=== PATIENT | male | born 1975 | race Two or more races ===

== ENCOUNTER 2020-12-31 20:50 | Emergency (ER) | payer OTHER ==
[2020-12-31 20:52] VITALS: BP 106/63
--- NOTE | 2020-12-31 20:52 | NUR ---
BIBA FOLLOWING PEPPER SPRAY TO FACE BY RTC. PT C/O PAIN TO FACE AND EYES. PT SITTING UPRIGHT ON SAUNDRA NUNO VSChristiano. "I JUST WANT TO GO HOME". PT DENIES ANY NEEDS AT THIS TIME
--- NOTE | 2020-12-31 22:05 | NUR ---
PT RESTING COMFORTABLY WITH EYES CLOSED. PT DENIES ANY NEEDS AT THIS TIME. CALL LIGHT AND PERSONAL BELONGINGS WITHIN REACH.
--- NOTE | 2020-12-31 22:43 | NUR ---
PT CONTINUALLY STATES "I JUST WANT TO GO HOME, IM READY TO LEAVE". PT AMBULATORY WITH STEADY GAIT TO ED WAITING ROOM. PT REFUSING TO WAIT FOR D/C PAPERWORK. ERP AWARE.
== END 2020-12-31 22:46 | disposition home or self-care (01) ==
LOC: ED 21:30
DX: H10.213 Acute toxic conjunctivitis, bilateral (principal); F10.120 Alcohol abuse with intoxication, uncomplicated; Y90.0 Blood alcohol level of less than 20 mg/100 ml
CPT/HCPCS: 99283